=== PATIENT | female | born 1945 | race Hispanic/Latino ===

== ENCOUNTER 2020-12-28 14:35 | Observation (INO) | payer MEDICARE, SELFPAY ==
[2020-12-28] MEDS ORDERED: Acetaminophen 500 MG TAB ONE (15:02)
[2020-12-28] MEDS ORDERED: Sodium Chloride 0.9% 1,000 ML ONE (15:28)
[2020-12-28 15:29] LABS: #Lymphocytes 1.5 thou/uL (1.20-3.40); #Monocytes 0.2 thou/uL (0.11-0.59); #Neutrophils 3.2 thou/uL (1.40-6.50); %Basophils 0.4 % (0.0-1.0); %Lymphocytes 30.4 % (21.0-51.0); %Monocytes 4.4 % (0.0-10.0); %Neutrophils 64.8 % (42.0-75.0); Hemoglobin 12.6 g/dL (12.0-16.0); Mean Corpuscular HGB CONC 32.8 g/dL (32.0-36.0); Mean Corpuscular Hemoglobin 29.8 pg (27.0-31.0); Mean Corpuscular Volume 90.7 fL (78.0-98.0); Mean Platelet Volume 9.2 fL (7.4-10.4); Platelet Count 158 thou/uL (130-400); RBC Distribution Width 12.2 % (11.5-14.5); Red Blood Cell (RBC) Count 4.24 mill/uL (4.20-5.40); White Blood Cell (WBC) Count 4.9 thou/uL (4.8-10.8)
[2020-12-28 15:47] LABS: Anion Gap 16 mmol/L (10-20); BUN (Urea Nitrogen) 37 mg/dL (9.8-20.1); Calc. Creatinine Clearance 0 mL/min (70-130); Carbon Dioxide 21 mmol/L (23-31); Chloride 102 mmol/L (98-107); Potassium 4.6 mmol/L (3.5-5.1); Sodium 134 mmol/L (136-145)
[2020-12-28 15:48] LABS: ALT (SGPT) 50 U/L (8-55); AST (SGOT) 103 U/L (5-34); Albumin 3.8 g/dL (3.4-4.8); Alkaline Phosphatase 46 U/L (40-110); Bilirubin, Total 0.3 mg/dL (0.2-1.2); Globulin 3.5 g/dL (2.4-3.5); Glucose 119 mg/dL (83-110); Protein, Total 7.3 g/dL (5.8-8.1)
[2020-12-28 16:07] LABS: Bilirubin Negative (Negative); Blood, Urine Moderate (Negative); Clarity Cloudy (Clear); Glucose, Urine (Dipstick) Negative (Negative); Ketone, Urine Negative (Negative); Leukocyte Negative (Negative); Nitrite Negative (Negative); Protein, Urine (Dipstick) 100 mg/dL (Neg-Trace); Urobilinogen 0.2 mg/dL (Less than 2)
[2020-12-28 16:12] LABS: Bacteria/HPF 1+ HPF (None Seen); RBC/HPF 0-3 HPF (0-3)
[2020-12-28 16:13] LABS: Mucous/LPF 1+ LPF (<2+); Yeast-Budding 2+ HPF (None Seen)
[2020-12-28] MEDS ORDERED: cefTRIAXone\\ROCEPHIN 1 GM VIAL ONE (16:51)
[2020-12-28] MEDS ORDERED: Sodium Chloride 0.9% 100 ML ONE (16:51)
[2020-12-28 17:26] LABS: SARS-CoV-2 NAA Rapid Test DETECTED (NotDetected)
[2020-12-28] MEDS ORDERED: Azithromycin 500 MG VIAL ONE (17:27)
[2020-12-28] MEDS ORDERED: Sodium Chloride 0.9% 250 ML 250 ML ONE (17:27)
[2020-12-28 21:40] VITALS: BMI 36.4
[2020-12-29] MEDS ORDERED: Albuterol 200 PUFF (6.7GM INHALER) INH PRN (01:07)
[2020-12-29] MEDS ORDERED: Acetaminophen 325 MG TAB PO PRN (01:15)
[2020-12-29] MEDS: Levothyroxine Sodium 75 MCG TAB PO SCH (05:56)
[2020-12-29] MEDS: Lisinopril 20 MG TAB PO SCH ×2 (08:02→21:19)
[2020-12-29] MEDS: Acetaminophen 325 MG TAB PO PRN ×2 (09:50→21:21)
[2020-12-29] MEDS ORDERED: Eucerin (Mineral Oil/Petrolatum,White) 30 gm Jar TOP PRN (14:22)
[2020-12-29] MEDS ORDERED: Calcium Carbonate 500 MG ChewTAB PO PRN (14:22)
[2020-12-29] MEDS ORDERED: Cepastat Lozenges 1 LOZ PO PRN (14:22)
[2020-12-29] MEDS ORDERED: hydrOXYzine 25 MG TAB PO PRN (14:22)
[2020-12-29] MEDS ORDERED: Sodium Chloride 0.65% Nasal 44 ML BOT EA NARE PRN (14:22)
[2020-12-29] MEDS ORDERED: Promethazine HCl 25 MG SUPP PR PRN (14:22)
[2020-12-29] MEDS ORDERED: Ondansetron ODT 4 MG TAB PO PRN (14:22)
[2020-12-29] MEDS ORDERED: Loperamide HCl 2 MG CAP PO PRN ×2 (14:22)
[2020-12-29] MEDS ORDERED: Artificial Tear Sol 15 ML BOT EA EYE PRN (14:22)
[2020-12-29] MEDS ORDERED: Senokot S 8.6-50 MG TAB PO PRN (14:22)
[2020-12-29] MEDS: Atorvastatin Calcium 10 MG TAB PO SCH (21:20)
[2020-12-29] MEDS: Gabapentin 300 MG CAP PO SCH (21:20)
[2020-12-30] MEDS: Levothyroxine Sodium 75 MCG TAB PO SCH (05:10)
[2020-12-30] MEDS: Lisinopril 20 MG TAB PO SCH ×2 (09:40→20:37)
[2020-12-30] MEDS: Acetaminophen 325 MG TAB PO PRN ×2 (09:40→20:49)
[2020-12-30] MEDS ORDERED: cloNIDine 0.1 MG TAB PO PRN (17:44)
[2020-12-30] MEDS: Atorvastatin Calcium 10 MG TAB PO SCH (20:37)
[2020-12-30] MEDS: Benzonatate 100 MG CAP PO PRN (20:37)
[2020-12-30] MEDS: Gabapentin 300 MG CAP PO SCH (20:37)
[2020-12-30] MEDS ORDERED: Lisinopril 20 MG TAB PO SCH (21:00)
[2020-12-31] MEDS: Acetaminophen 325 MG TAB PO PRN ×2 (05:16→14:30)
[2020-12-31] MEDS: Levothyroxine Sodium 75 MCG TAB PO SCH (05:17)
[2020-12-31] MEDS: Lisinopril 20 MG TAB PO SCH ×2 (08:01→12:12)
[2020-12-31] MEDS ORDERED: Enoxaparin Sodium 30 MG/0.3 ML SYRINGE SC SCH (09:00)
[2020-12-31 12:05] VITALS: BP 177/79; TEMP 97.8
[2020-12-31] MEDS: Benzonatate 100 MG CAP PO PRN (14:30)
== END 2020-12-31 15:40 | disposition home or self-care (01) ==
LOC: NAV ERS 14:35 → NAV ACUTE 20:30
PROVIDERS: ADMIT Family Medicine; ATTEND Family Medicine
DX: U07.1 COVID-19 (principal); J12.82 Pneumonia due to coronavirus disease 2019; I10 Essential (primary) hypertension; E78.5 Hyperlipidemia, unspecified; E03.9 Hypothyroidism, unspecified; M81.0 Age-related osteoporosis without current pathological fracture; I70.0 Atherosclerosis of aorta; Z79.83 Long term (current) use of bisphosphonates; Z79.899 Other long term (current) drug therapy
CPT/HCPCS: 51701; 71045; 80053; 81003; 81015; 83605; 84484; 85025; 87040; 93005; 96365; 96367; 96372; G0378; J0456; J0696; J1650; J3490; J7050; U0002